=== PATIENT | male | born 1945 | race Caucasian/White ===

== ENCOUNTER 2019-09-16 06:00 | Outpatient (RCR) | payer MEDICARE, SELFPAY | END 2019-10-13 23:59 | disposition home or self-care (01) | LOC: GPT 06:00 | PROVIDERS: Absent Provider Internal Medicine; Family Provider Family Medicine; PCP Family Medicine; Referring Provider Internal Medicine; Visit Provider Internal Medicine | DX: M25.511 Pain in right shoulder (principal); M25.611 Stiffness of right shoulder, not elsewhere classified | CPT/HCPCS: 97032; 97110; 97140; 97161; 97164; 97530; G0283 ==

== ENCOUNTER 2019-10-14 06:00 | Outpatient (RCR) | payer MEDICARE, SELFPAY | END 2019-11-12 23:59 | disposition home or self-care (01) | LOC: GPT 06:00 | PROVIDERS: PCP Family Medicine; Visit Provider Internal Medicine | DX: M25.511 Pain in right shoulder (principal); M25.611 Stiffness of right shoulder, not elsewhere classified | CPT/HCPCS: 97032; 97110; 97140; 97530; G0283 ==

== ENCOUNTER 2019-11-13 06:00 | Outpatient (RCR) | payer MEDICARE, SELFPAY | END 2019-12-13 23:59 | disposition home or self-care (01) | LOC: GPT 06:00 | PROVIDERS: PCP Family Medicine; Visit Provider Internal Medicine | DX: M25.511 Pain in right shoulder (principal); M25.611 Stiffness of right shoulder, not elsewhere classified | CPT/HCPCS: 97032; 97110; G0283 ==

== ENCOUNTER 2023-02-13 13:52 | Outpatient (CLI) | payer MEDICARE, SELFPAY ==
--- NOTE | 2023-02-13 14:00 | USCV_ITS ---
Brent Bridges Age: 77 Gender: M : 1945 Exam Date: 02/13/2023 14:55 Ordering Phys: Sylvie Bennett Technologist: GRANT Exam Location: [facility] Indication: Stepped on by cow. Rt Leg swelling and pain HISTORY: Lower extremity swelling. Lower extremity pain. PROCEDURES: Venous duplex imaging was performed in only the right lower extremity. The following venous structures were evaluated: common femoral vein, profunda vein, proximal portion of the greater saphenous vein, superficial femoral vein, and the popliteal vein. In addition, the posterior tibial and peroneal trunk were evaluated. Serial compression, augmentation maneuvers, and spectral Doppler flow evaluation were performed. FINDINGS: No evidence of DVT seen in any vessel visualized at this time. CONCLUSIONS No evidence of right lower extremity DVT. Douglas High MD (Electronically Signed) Final Date: 13 February 2023 16:59 Amended: 13 February 2023 17:00 C
== END 2023-02-13 13:53 | disposition home or self-care (01) ==
LOC: RAD 13:58
PROVIDERS: PCP Family Medicine; Visit Provider Nurse Practitioner
DX: M79.89 Other specified soft tissue disorders (principal); M79.604 Pain in right leg; W55.22XA Struck by cow, initial encounter
CPT/HCPCS: 93971

== ENCOUNTER 2023-05-30 06:00 | Outpatient (RCR) | payer MEDICARE, SELFPAY | END 2023-06-14 23:59 | disposition home or self-care (01) | LOC: GPT 06:00 | PROVIDERS: Visit Provider Orthopaedic Surgery Foot and Ankle Surgery | DX: Z47.1 Aftercare following joint replacement surgery (principal) | CPT/HCPCS: 97110; 97112; 97140; 97161; 97530 ==

== ENCOUNTER 2023-06-15 06:00 | Outpatient (RCR) | payer MEDICARE, SELFPAY | END 2023-07-13 23:59 | disposition home or self-care (01) | LOC: GPT 06:00 | PROVIDERS: Visit Provider Orthopaedic Surgery Foot and Ankle Surgery | DX: M17.12 Unilateral primary osteoarthritis, left knee (principal) | CPT/HCPCS: 97110; 97112; 97140; 97530 ==

== ENCOUNTER 2023-07-17 06:00 | Outpatient (RCR) | payer MEDICARE, SELFPAY | END 2023-08-13 23:59 | disposition home or self-care (01) | LOC: GPT 06:00 | PROVIDERS: Visit Provider Orthopaedic Surgery Foot and Ankle Surgery | DX: Z47.1 Aftercare following joint replacement surgery (principal); Z96.652 Presence of left artificial knee joint | CPT/HCPCS: 97110; 97140; 97161; 97530 ==

== ENCOUNTER 2023-08-14 06:00 | Outpatient (RCR) | payer MEDICARE, SELFPAY | END 2023-09-12 23:59 | disposition home or self-care (01) | LOC: GPT 06:00 | PROVIDERS: Visit Provider Orthopaedic Surgery Foot and Ankle Surgery | DX: Z47.1 Aftercare following joint replacement surgery (principal); Z96.652 Presence of left artificial knee joint | CPT/HCPCS: 97110; 97140; 97164 ==

== ENCOUNTER 2024-05-31 16:44 | Outpatient (RCR) | payer MEDICARE, SELFPAY | END 2024-06-14 23:59 | disposition home or self-care (01) | LOC: GPT 16:44 | PROVIDERS: Visit Provider Physician Assistant Medical | DX: M19.011 Primary osteoarthritis, right shoulder (principal) | CPT/HCPCS: 97110; 97112; 97140; 97161 ==

== ENCOUNTER 2024-06-15 06:00 | Outpatient (RCR) | payer MEDICARE, SELFPAY | END 2024-07-12 23:59 | disposition home or self-care (01) | LOC: GPT 06:00 | PROVIDERS: Visit Provider Physician Assistant Medical | DX: M19.011 Primary osteoarthritis, right shoulder (principal) | CPT/HCPCS: 97110; 97140 ==

== ENCOUNTER 2024-07-13 06:00 | Outpatient (RCR) | payer MEDICARE, SELFPAY | END 2024-08-12 23:59 | disposition home or self-care (01) | LOC: GPT 06:00 | PROVIDERS: Visit Provider Physician Assistant Medical | DX: M19.011 Primary osteoarthritis, right shoulder (principal) | CPT/HCPCS: 97110; 97112; 97140 ==

== ENCOUNTER 2024-08-02 06:00 | Outpatient (RCR) | payer MEDICARE, SELFPAY | END 2024-08-12 23:59 | disposition home or self-care (01) | LOC: GPT 06:00 | PROVIDERS: Visit Provider Orthopaedic Surgery Foot and Ankle Surgery | DX: Z47.1 Aftercare following joint replacement surgery (principal); Z96.651 Presence of right artificial knee joint | CPT/HCPCS: 97110; 97112; 97140; 97161 ==

== ENCOUNTER 2024-08-13 06:00 | Outpatient (RCR) | payer MEDICARE, SELFPAY | END 2024-09-11 23:59 | disposition home or self-care (01) | LOC: GPT 06:00 | PROVIDERS: Visit Provider Orthopaedic Surgery Foot and Ankle Surgery | DX: Z47.1 Aftercare following joint replacement surgery (principal); Z96.651 Presence of right artificial knee joint | CPT/HCPCS: 97110; 97140; 97530 ==

== ENCOUNTER 2024-09-12 05:00 | Outpatient (RCR) | payer MEDICARE, SELFPAY | END 2024-10-12 23:59 | disposition home or self-care (01) | LOC: GPT 05:00 | PROVIDERS: Visit Provider Orthopaedic Surgery Foot and Ankle Surgery | DX: Z47.1 Aftercare following joint replacement surgery (principal); Z96.651 Presence of right artificial knee joint | CPT/HCPCS: 97110; 97112; 97140; 97164; 97530 ==

== ENCOUNTER 2024-10-13 05:00 | Outpatient (RCR) | payer MEDICARE, SELFPAY | END 2024-11-05 10:18 | disposition home or self-care (01) | LOC: GPT 05:00 | PROVIDERS: Visit Provider Orthopaedic Surgery Foot and Ankle Surgery | DX: Z47.1 Aftercare following joint replacement surgery (principal); Z96.651 Presence of right artificial knee joint | CPT/HCPCS: 97110; 97112; 97140; 97530 ==